=== PATIENT | female | born 1965 | race Caucasian/White ===

== ENCOUNTER 2017-07-02 09:26 | Inpatient (IN) | payer OTHER ==
[~2017-07-02] VITALS: Ht 175.3 cm; Wt 62.7 kg
[~2017-07-02 09:26] MED LIST: ALBU90OI INH; ALPR.25 PO; AMLO5 PO; BENZ100A PO; BUPR150T2 PO; CARV25 PO; CARV6.25 PO; Catapres0.1 MG PO; Coreg12.5 MG PO; Cyclobenzaprine5 MG PO; DICY20 PO; DIPATR PO; GUAI120S1 PO; HYDCHL25 PO; LOSARTAN POTAS100 MG PO; LOSHYD100 PO; MAGOXI400 PO; NITR100CA PO; OMEPRAZOLE MAGN20 MG PO; PROM25 PO; SERT50 PO; SPACE CHAMBER1 EACH MC; TRAM50 PO; VARE1 PO; Zithromax250 MG PO
[2017-07-02 10:07] LABS: PO2 Arterial 88.4 mmHg (80-100); pH Blood Arterial 7.45 (7.35-7.45)
[2017-07-02 10:25] LABS: BASOPHILS ABSOLUTE AUTO 0.01 K/mm3 (0.00-0.23); BASOPHILS PERCENT AUTO 0 % (0-2); EOSINOPHILS ABSOLUTE AUTO 0.02 K/mm3 (0.00-0.68); EOSINOPHILS PERCENT AUTO 0 % (0-6); Hematocrit 45.3 % (33.0-51.0); IMMATURE GRAN ABSOLUTE AUTO 0.04 K/mm3 (0.00-0.10); IMMATURE GRAN PERCENT AUTO 0 % (0-1); LYMPHOCYTES ABSOLUTE AUTO 1.67 K/mm3 (0.84-5.20); LYMPHOCYTES PERCENT AUTO 10 % (21-46); MONOCYTES ABSOLUTE AUTO 0.62 K/mm3 (0.16-1.47); MONOCYTES PERCENT AUTO 4 % (4-13); Mean Corpuscular HGB 34.2 pg (26.0-34.0); Mean Corpuscular HGB Conc 33.1 g/dL (31.5-36.5); Mean Corpuscular Volume 103 fL (80-100); Mean Platelet Volume 9.6 fL (9.1-12.4); NEUTROPHILS ABSOLUTE AUTO 13.99 K/mm3 (1.96-9.15); NEUTROPHILS PERCENT AUTO 86 % (41-73); Platelet Count 370 K/mm3 (150-400); RDW Coefficient Variation 12.6 % (11.7-14.2); RDW Standard Deviation 47.4 fL (35.1-46.3); Red Blood Cell Count 4.38 M/mm3 (3.80-5.20); White Blood Cell Count 16.35 K/mm3 (4.00-11.30)
[2017-07-02 10:32] LABS: Alanine Aminotransfer (ALT/SGP 49 U/L (12-78); Albumin, Blood 3.2 g/dL (3.4-5.0); Albumin/Globulin Ratio 0.7 (0.8-1.8); Alk Phos 70 U/L (50-136); Anion Gap 14 mmol/L (6-16); Aspartate Aminotrans (AST/SGOT 86 U/L (12-37); Bilirubin, Total 0.5 mg/dL (0.1-1.0); Blood Urea Nitrogen 30 mg/dL (8-24); Bun/Creatinine Ratio 49.3 (12.0-20.0); CO2, Blood 23 mmol/L (21-32); CPK Creatine Kinase 727 U/L (26-193); Calcium, Blood 9.4 mg/dL (8.5-10.1); Chloride, Blood 105 mmol/L (98-108); Creatinine, Blood 0.61 mg/dL (0.40-1.00); Ethanol (Alcohol), Blood, Med <3 mg/dL; Globulin, Blood 4.3 g/dL (2.2-4.0); Glomerular Filtration Rate >60 (60-); Glucose, Blood 134 mg/dL (70-99); Potassium, Blood 3.6 mmol/L (3.5-5.5); Salicylate 2.6 mg/dL (2.8-20.0); Sodium, Blood 142 mmol/L (136-145); Total Protein, Blood 7.5 g/dL (6.4-8.2); Troponin I 0.105 ng/mL (0.000-0.040)
[2017-07-02 10:41] LABS: Acetaminophen, Random <2.0 ug/mL (10.0-30.0)
[2017-07-02 10:49] LABS: Creatine Kinase MB Index 2.1 (0.0-4.0); International Normalized Ratio 0.97; Prothrombin Time Results 10.1 Sec (9.7-11.5)
[2017-07-02 11:01] LABS: Blood, Urine 3+ (Neg); Glucose Qualitative, Urine 1+ (Neg); Ketones, Urine 4+ (Neg); Leukocyte Esterase, Urine 1+ (Neg); Nitrite, Urine Neg (Neg); Protein, Urine 3+ (Neg); Specific Gravity, Urine 1.025 (1.003-1.022); Urobilinogen, Urine 1+ (Normal)
[2017-07-02 11:33] LABS: U Amphetamine Screen Not Detected; U Barbituate Screen Not Detected; U Benzodiazapine Screen Not Detected; U Buprenorphine Screen Not Detected; U Cannabinoids Screen DETECTED; U Cocaine Screen Not Detected; U Methadone Screen Not Detected; U Methamphetamine Screen Not Detected; U Opiates Screen Not Detected; U Oxycodone Screen Not Detected; U Phencyclidine Screen Not Detected; U Propoxyphene Screen Not Detected
[2017-07-02 12:39] LABS: Bilirubin, Urine 2+ (Neg)
[2017-07-02 12:40] LABS: Appearance, Urine Cloudy (Clear); Color, Urine Yellow (P-Yellow)
[2017-07-02 12:41] LABS: Bacteria Few /hpf; Red Blood Cells, Urine 0-2 /hpf (0-2); Squamous Epithelial Cells Mod /hpf (Few)
[2017-07-02] MEDS ORDERED: Coreg12.5 MG PO (17:44)
[2017-07-02] MEDS ORDERED: CLON.1 PO (17:45)
[2017-07-02] MEDS ORDERED: RANI150 PO (17:45)
[2017-07-03 05:05] LABS: PCO2 Arterial 29.1 mmHg (35-45); pH Blood Arterial 7.52 (7.35-7.45)
[2017-07-03 05:06] LABS: PO2 Arterial 83.7 mmHg (80-100)
[2017-07-03 05:15] LABS: Hematocrit 39.7 % (33.0-51.0); Hemoglobin 13.1 g/dL (11.5-16.0); Mean Corpuscular HGB 34.2 pg (26.0-34.0); Mean Corpuscular Volume 104 fL (80-100); Mean Platelet Volume 9.9 fL (9.1-12.4); Platelet Count 283 K/mm3 (150-400); RDW Coefficient Variation 12.8 % (11.7-14.2); RDW Standard Deviation 48.4 fL (35.1-46.3); Red Blood Cell Count 3.83 M/mm3 (3.80-5.20); White Blood Cell Count 10.92 K/mm3 (4.00-11.30)
[2017-07-03 05:45] LABS: Magnesium, Blood 1.7 mg/dL (1.6-2.4)
[2017-07-03 05:54] LABS: Alanine Aminotransfer (ALT/SGP 40 U/L (12-78); Albumin, Blood 2.8 g/dL (3.4-5.0); Albumin/Globulin Ratio 0.8 (0.8-1.8); Alk Phos 60 U/L (50-136); Anion Gap 9 mmol/L (6-16); Aspartate Aminotrans (AST/SGOT 62 U/L (12-37); Bilirubin, Total 0.5 mg/dL (0.1-1.0); Blood Urea Nitrogen 23 mg/dL (8-24); Bun/Creatinine Ratio 38.9 (12.0-20.0); CO2, Blood 25 mmol/L (21-32); CPK Creatine Kinase 429 U/L (26-193); Calcium, Blood 8.9 mg/dL (8.5-10.1); Chloride, Blood 110 mmol/L (98-108); Cholesterol 177 mg/dL (50-200); Creatinine, Blood 0.59 mg/dL (0.40-1.00); Globulin, Blood 3.7 g/dL (2.2-4.0); Glomerular Filtration Rate >60 (60-); Glucose, Blood 105 mg/dL (70-99); HDL Cholesterol 60 mg/dL (>39); LDL/HDL RATIO 1.4; Low Density Lipoprotein Chol 86 mg/dL (0-110); Phosphorus, Blood 2.3 mg/dL (2.5-4.9); Potassium, Blood 2.9 mmol/L (3.5-5.5); Sodium, Blood 144 mmol/L (136-145); Total Protein, Blood 6.5 g/dL (6.4-8.2); Triglycerides 157 mg/dL (30-160); Very Low Density Lipoprot Chol 31 mg/dL (6-32)
[2017-07-04 04:04] LABS: BASOPHILS ABSOLUTE AUTO 0.02 K/mm3 (0.00-0.23); BASOPHILS PERCENT AUTO 0 % (0-2); EOSINOPHILS ABSOLUTE AUTO 0.12 K/mm3 (0.00-0.68); EOSINOPHILS PERCENT AUTO 2 % (0-6); Hematocrit 35.1 % (33.0-51.0); Hemoglobin 11.7 g/dL (11.5-16.0); IMMATURE GRAN ABSOLUTE AUTO 0.02 K/mm3 (0.00-0.10); IMMATURE GRAN PERCENT AUTO 0 % (0-1); LYMPHOCYTES ABSOLUTE AUTO 1.34 K/mm3 (0.84-5.20); LYMPHOCYTES PERCENT AUTO 20 % (21-46); MONOCYTES ABSOLUTE AUTO 0.37 K/mm3 (0.16-1.47); MONOCYTES PERCENT AUTO 6 % (4-13); Mean Corpuscular HGB 33.7 pg (26.0-34.0); Mean Corpuscular HGB Conc 33.3 g/dL (31.5-36.5); Mean Platelet Volume 10.9 fL (9.1-12.4); NEUTROPHILS PERCENT AUTO 72 % (41-73); Platelet Count 189 K/mm3 (150-400); RDW Coefficient Variation 12.6 % (11.7-14.2); RDW Standard Deviation 46.1 fL (35.1-46.3); Red Blood Cell Count 3.47 M/mm3 (3.80-5.20); White Blood Cell Count 6.67 K/mm3 (4.00-11.30)
[2017-07-04 04:13] LABS: Mean Corpuscular Volume 101 fL (80-100)
[2017-07-04 04:27] LABS: Anion Gap 11 mmol/L (6-16); Blood Urea Nitrogen 14 mg/dL (8-24); Bun/Creatinine Ratio 28.3 (12.0-20.0); CO2, Blood 23 mmol/L (21-32); Calcium, Blood 8.2 mg/dL (8.5-10.1); Chloride, Blood 108 mmol/L (98-108); Creatinine, Blood 0.49 mg/dL (0.40-1.00); Glomerular Filtration Rate >60 (60-); Glucose, Blood 109 mg/dL (70-99); Magnesium, Blood 1.3 mg/dL (1.6-2.4); Phosphorus, Blood 2.9 mg/dL (2.5-4.9); Potassium, Blood 3.2 mmol/L (3.5-5.5); Sodium, Blood 142 mmol/L (136-145)
[2017-07-06 05:51] LABS: Hematocrit 33.4 % (33.0-51.0); Hemoglobin 11.1 g/dL (11.5-16.0)
[2017-07-06 06:24] LABS: Anion Gap 8 mmol/L (6-16); Blood Urea Nitrogen 16 mg/dL (8-24); Bun/Creatinine Ratio 29.7 (12.0-20.0); CO2, Blood 24 mmol/L (21-32); Calcium, Blood 8.6 mg/dL (8.5-10.1); Chloride, Blood 106 mmol/L (98-108); Creatinine, Blood 0.54 mg/dL (0.40-1.00); Glomerular Filtration Rate >60 (60-); Glucose, Blood 125 mg/dL (70-99); Magnesium, Blood 1.4 mg/dL (1.6-2.4); Phosphorus, Blood 2.5 mg/dL (2.5-4.9); Potassium, Blood 3.9 mmol/L (3.5-5.5); Sodium, Blood 138 mmol/L (136-145)
[2017-07-07] MEDS ORDERED: Juven1 EACH PO (13:00)
[2017-07-07] MEDS ORDERED: ASPI325 PO (13:00)
[2017-07-07] MEDS ORDERED: DOCU100 PO (13:00)
[2017-07-07] MEDS ORDERED: ATOR40TA PO (13:01)
[2018-05-25] MEDS ORDERED: ASPI81CH PO (12:11)
[2018-05-25] MEDS ORDERED: DISU500 PO (12:12)
[2018-05-25] MEDS ORDERED: Naltrexone HCl50 MG PO (12:13)
[2018-05-25] MEDS ORDERED: VENL75ER PO (12:14)
== END 2017-07-07 16:59 | DRG 64 ==
LOC: ER 09:26 → ICUE 11:18 → ICUW 11:18 → ICUE 12:55 → MEDS 07-04 20:29
PROVIDERS: Emergency Medicine; Family Medicine; Internal Medicine Critical Care Medicine
PROC: 5A1935Z Respiratory Ventilation, Less than 24 Consecutive Hours (ICD-10-PCS; principal; 2017-07-02)
PROC: 0BH17EZ Insertion of Endotracheal Airway into Trachea, Via Natural or Artificial Opening (ICD-10-PCS; 2017-07-02)
DX: I63.9 Cerebral infarction, unspecified (principal); G92 Toxic encephalopathy; J96.90 Respiratory failure, unspecified, unspecified whether with hypoxia or hypercapnia; L89.152 Pressure ulcer of sacral region, stage 2; G81.91 Hemiplegia, unspecified affecting right dominant side; F10.230 Alcohol dependence with withdrawal, uncomplicated; I10 Essential (primary) hypertension; E87.6 Hypokalemia; E83.39 Other disorders of phosphorus metabolism; R35.0 Frequency of micturition; Z87.891 Personal history of nicotine dependence; Z79.899 Other long term (current) drug therapy
CPT/HCPCS: 31500; 31720; 36415; 36600; 51702; 70450; 71045; 71275; 72125; 74175; 80048; 80053; 80061; 81001; 82550; 82553; 82803; 83605; 83690; 83735; 84100; 84443; 84484; 85014; 85018; 85025; 85027; 85610; 87040; 87086; 92526; 92610; 93005; 93010; 93306; 94002; 94003; 96361; 96365; 96375; 97110; 97112; 97163; 97167; 97530; 97535; 99291; 99292; C9113; G0480; G8978; G8979; G8987; G8988; G8996; G8997; G8998; J0330; J0360; J0696; J1644; J2060; J2250; J3370; J3411; J3475; J3480; J7030; J7042; J7050; J7060; Q9967

== ENCOUNTER 2017-07-10 13:51 | Emergency (ER) | payer OTHER ==
[~2017-07-10] VITALS: Ht 175.3 cm; Wt 65.8 kg
[~2017-07-10 13:51] MED LIST changes: +ASPI325 PO; +ATOR40TA PO; +CLON.1 PO; +DOCU100 PO; +Juven1 EACH PO; +RANI150 PO
[2017-07-10] MEDS ORDERED: Benadryl25 MG PO (14:58)
[2018-05-25] MEDS ORDERED: ASPI81CH PO (12:11)
[2018-05-25] MEDS ORDERED: DISU500 PO (12:12)
[2018-05-25] MEDS ORDERED: Naltrexone HCl50 MG PO (12:13)
[2018-05-25] MEDS ORDERED: VENL75ER PO (12:14)
== END 2017-07-10 16:00 | disposition home or self-care (01) ==
LOC: ER 13:51
DX: I63.9 Cerebral infarction, unspecified (principal); G81.91 Hemiplegia, unspecified affecting right dominant side; L89.159 Pressure ulcer of sacral region, unspecified stage; M62.461 Contracture of muscle, right lower leg; I10 Essential (primary) hypertension; F17.200 Nicotine dependence, unspecified, uncomplicated; Z79.899 Other long term (current) drug therapy; Z79.82 Long term (current) use of aspirin; Z90.89 Acquired absence of other organs; Z98.51 Tubal ligation status; W18.30XA Fall on same level, unspecified, initial encounter
CPT/HCPCS: 99283

== ENCOUNTER 2017-07-23 10:06 | Emergency (ER) | payer OTHER ==
[~2017-07-23] VITALS: Ht 175.3 cm; Wt 65.8 kg
[~2017-07-23 10:06] MED LIST changes: +Benadryl25 MG PO
[2017-07-23] MEDS ORDERED: Norco 5-325 Ta1 EACH PO (10:42)
[2017-07-23] MEDS ORDERED: TRAM50 PO ×2 (10:53→10:54)
[2018-05-25] MEDS ORDERED: ASPI81CH PO (12:11)
[2018-05-25] MEDS ORDERED: DISU500 PO (12:12)
[2018-05-25] MEDS ORDERED: Naltrexone HCl50 MG PO (12:13)
[2018-05-25] MEDS ORDERED: VENL75ER PO (12:14)
== END 2017-07-23 11:27 | disposition home or self-care (01) ==
LOC: ER 10:06
DX: L89.153 Pressure ulcer of sacral region, stage 3 (principal); I10 Essential (primary) hypertension; Z98.51 Tubal ligation status; Z79.899 Other long term (current) drug therapy; Z79.82 Long term (current) use of aspirin
CPT/HCPCS: 99283

== ENCOUNTER 2017-07-30 07:22 | Emergency (ER) | payer OTHER ==
[~2017-07-30] VITALS: Ht 162.6 cm; Wt 63.5 kg
[~2017-07-30 07:22] MED LIST changes: +Norco 5-325 Ta1 EACH PO
[2017-07-30] MEDS ORDERED: FOLI1 PO (07:39)
[2017-07-30] MEDS ORDERED: CYAN500 PO (07:39)
[2017-07-30] MEDS ORDERED: Prozac40 MG PO (07:39)
[2017-07-30] MEDS ORDERED: MIRALAX17 GM PO (07:40)
[2017-07-30] MEDS ORDERED: CHOL10002 (07:41)
[2017-07-30] MEDS ORDERED: BACL10 PO (07:41)
[2017-07-30] MEDS ORDERED: Potassium99 MG PO (07:41)
[2017-07-30] MEDS ORDERED: MELA3 PO (07:41)
[2017-07-30] MEDS ORDERED: Hair, Skin & N1 EACH PO (07:41)
[2017-07-30] MEDS ORDERED: BUTALB-ACETAMI1 EACH PO (07:42)
[2017-07-30] MEDS ORDERED: ACET325 PO (07:42)
[2017-07-30] MEDS ORDERED: GABA300 PO (07:42)
[2017-07-30] MEDS ORDERED: Milk Of Ma400 MG/5 M PO (07:43)
[2017-07-30] MEDS ORDERED: BISA10S PR (07:43)
[2018-05-25] MEDS ORDERED: ASPI81CH PO (12:11)
[2018-05-25] MEDS ORDERED: DISU500 PO (12:12)
[2018-05-25] MEDS ORDERED: Naltrexone HCl50 MG PO (12:13)
[2018-05-25] MEDS ORDERED: VENL75ER PO (12:14)
== END 2017-07-30 09:17 | disposition home or self-care (01) ==
LOC: ER 07:22
DX: M79.601 Pain in right arm (principal); I10 Essential (primary) hypertension; E78.5 Hyperlipidemia, unspecified; Z79.899 Other long term (current) drug therapy; Z79.82 Long term (current) use of aspirin; Z86.73 Personal history of transient ischemic attack (TIA), and cerebral infarction without residual deficits; Z90.89 Acquired absence of other organs; Z87.891 Personal history of nicotine dependence
CPT/HCPCS: 99283

== ENCOUNTER 2018-02-15 07:06 | Observation (INO) | payer OTHER ==
[~2018-02-15] VITALS: Ht 175.3 cm; Wt 76.9 kg
[~2018-02-15 07:06] MED LIST changes: +ACET325 PO; +BACL10 PO; +BISA10S PR; +BUTALB-ACETAMI1 EACH PO; +CHOL10002; +CYAN500 PO; +FOLI1 PO; +GABA300 PO; +Hair, Skin & N1 EACH PO; +MELA3 PO; +MIRALAX17 GM PO; +Milk Of Ma400 MG/5 M PO; +Potassium99 MG PO; +Prozac40 MG PO
[2018-02-15] MEDS ORDERED: DIPH50 PO (07:13)
[2018-02-15] MEDS ORDERED: FLUC150A PO (07:16)
[2018-02-15] MEDS ORDERED: GABA300 PO (07:19)
[2018-02-15] MEDS ORDERED: Ibuprofen Ib200 MG PO (07:21)
[2018-02-15] MEDS ORDERED: HYDR1TAB94 PO (07:24)
[2018-02-15 07:59] LABS: BASOPHILS ABSOLUTE AUTO 0.03 K/mm3 (0.00-0.23); BASOPHILS PERCENT AUTO 1 % (0-2); EOSINOPHILS ABSOLUTE AUTO 0.25 K/mm3 (0.00-0.68); EOSINOPHILS PERCENT AUTO 5 % (0-6); Hematocrit 33.8 % (33.0-51.0); Hemoglobin 11.2 g/dL (11.5-16.0); IMMATURE GRAN ABSOLUTE AUTO 0.01 K/mm3 (0.00-0.10); IMMATURE GRAN PERCENT AUTO 0 % (0-1); LYMPHOCYTES ABSOLUTE AUTO 1.58 K/mm3 (0.84-5.20); LYMPHOCYTES PERCENT AUTO 30 % (21-46); MONOCYTES ABSOLUTE AUTO 0.23 K/mm3 (0.16-1.47); MONOCYTES PERCENT AUTO 4 % (4-13); Mean Corpuscular HGB 31.5 pg (26.0-34.0); Mean Corpuscular HGB Conc 33.1 g/dL (31.5-36.5); Mean Corpuscular Volume 95 fL (80-100); NEUTROPHILS ABSOLUTE AUTO 3.21 K/mm3 (1.96-9.15); NEUTROPHILS PERCENT AUTO 60 % (41-73); Platelet Count 240 K/mm3 (150-400); RDW Coefficient Variation 11.5 % (11.7-14.2); Red Blood Cell Count 3.56 M/mm3 (3.80-5.20); White Blood Cell Count 5.31 K/mm3 (4.00-11.30)
[2018-02-15 08:16] LABS: International Normalized Ratio 1.02; Prothrombin Time Results 10.5 Sec (9.7-11.5)
[2018-02-15 08:24] LABS: Alanine Aminotransfer (ALT/SGP 19 U/L (12-78); Albumin, Blood 3.6 g/dL (3.4-5.0); Albumin/Globulin Ratio 1.1 (0.8-1.8); Alk Phos 109 U/L (50-136); Anion Gap 6 mmol/L (6-16); Aspartate Aminotrans (AST/SGOT 15 U/L (12-37); Bilirubin, Total 0.3 mg/dL (0.1-1.0); Blood Urea Nitrogen 23 mg/dL (8-24); Bun/Creatinine Ratio 26.3 (12.0-20.0); CO2, Blood 25 mmol/L (21-32); Chloride, Blood 111 mmol/L (98-108); Creatinine, Blood 0.87 mg/dL (0.40-1.00); Globulin, Blood 3.3 g/dL (2.2-4.0); Glomerular Filtration Rate >60 (60-); Glucose, Blood 96 mg/dL (70-99); Potassium, Blood 4.6 mmol/L (3.5-5.5); Sodium, Blood 142 mmol/L (136-145); Total Protein, Blood 6.9 g/dL (6.4-8.2)
[2018-02-15] MEDS ORDERED: ONDA4 PO (13:31)
[2018-02-16] MEDS ORDERED: CLOP75 PO (13:53)
[2018-02-16] MEDS ORDERED: AMLO5 PO (13:53)
== END 2018-02-16 11:58 | disposition home or self-care (01) ==
LOC: ER 07:06 → MEDS 07:07 → ENPENDDIS 02-16 10:17 → MEDS 02-16 11:58
PROVIDERS: Physician Assistant
DX: G45.9 Transient cerebral ischemic attack, unspecified (principal); I10 Essential (primary) hypertension; G31.84 Mild cognitive impairment of uncertain or unknown etiology; R26.9 Unspecified abnormalities of gait and mobility; Z86.73 Personal history of transient ischemic attack (TIA), and cerebral infarction without residual deficits; Z98.890 Other specified postprocedural states; Z98.51 Tubal ligation status; Z87.891 Personal history of nicotine dependence; Z79.899 Other long term (current) drug therapy
CPT/HCPCS: 36415; 70450; 80053; 84484; 85025; 85610; 93005; 93010; 93880; 96360; 96361; 96372; 99285-25; G0378; J1650; J7030

== ENCOUNTER 2018-06-17 17:20 | Inpatient (IN) | payer OTHER ==
[~2018-06-17] VITALS: Ht 175.3 cm; Wt 71.0 kg
[~2018-06-17 17:20] MED LIST changes: +ASPI81CH PO; +CLOP75 PO; +DIPH50 PO; +DISU500 PO; +FLUC150A PO; +HYDR1TAB94 PO; +Ibuprofen Ib200 MG PO; +Naltrexone HCl50 MG PO; +ONDA4 PO; +VENL75ER PO
[2018-06-17 18:08] LABS: BASOPHILS ABSOLUTE AUTO 0.04 K/mm3 (0.00-0.23); BASOPHILS PERCENT AUTO 0 % (0-2); EOSINOPHILS PERCENT AUTO 2 % (0-6); Hemoglobin 11.8 g/dL (11.5-16.0); IMMATURE GRAN ABSOLUTE AUTO 0.02 K/mm3 (0.00-0.10); IMMATURE GRAN PERCENT AUTO 0 % (0-1); LYMPHOCYTES ABSOLUTE AUTO 2.14 K/mm3 (0.84-5.20); LYMPHOCYTES PERCENT AUTO 23 % (21-46); MONOCYTES ABSOLUTE AUTO 0.42 K/mm3 (0.16-1.47); MONOCYTES PERCENT AUTO 5 % (4-13); Mean Corpuscular HGB 31.6 pg (26.0-34.0); Mean Corpuscular HGB Conc 32.8 g/dL (31.5-36.5); Mean Corpuscular Volume 97 fL (80-100); Mean Platelet Volume 10.2 fL (9.1-12.4); NEUTROPHILS ABSOLUTE AUTO 6.48 K/mm3 (1.96-9.15); NEUTROPHILS PERCENT AUTO 70 % (41-73); Platelet Count 299 K/mm3 (150-400); RDW Coefficient Variation 12.3 % (11.7-14.2); RDW Standard Deviation 43.3 fL (35.1-46.3); Red Blood Cell Count 3.73 M/mm3 (3.80-5.20)
[2018-06-17 18:29] LABS: Alanine Aminotransfer (ALT/SGP 22 U/L (12-78); Albumin, Blood 3.3 g/dL (3.4-5.0); Albumin/Globulin Ratio 0.9 (0.8-1.8); Alk Phos 107 U/L (50-136); Anion Gap 9 mmol/L (6-16); Aspartate Aminotrans (AST/SGOT 19 U/L (12-37); Bilirubin, Total 0.2 mg/dL (0.1-1.0); Blood Urea Nitrogen 20 mg/dL (8-24); CO2, Blood 20 mmol/L (21-32); Calcium, Blood 8.9 mg/dL (8.5-10.1); Chloride, Blood 111 mmol/L (98-108); Creatinine, Blood 0.77 mg/dL (0.40-1.00); Globulin, Blood 3.7 g/dL (2.2-4.0); Glomerular Filtration Rate >60 (60-); Glucose, Blood 112 mg/dL (70-99); Sodium, Blood 140 mmol/L (136-145)
[2018-06-17 18:37] LABS: Troponin I 0.995 ng/mL (0.000-0.040)
[2018-06-18] MEDS ORDERED: PANT40 PO (00:07)
[2018-06-18] MEDS ORDERED: TRAZ50 PO (00:08)
[2018-06-18] MEDS ORDERED: DULO30 PO (00:09)
[2018-06-18] MEDS ORDERED: LEVE500 PO (00:09)
[2018-06-18 01:09] LABS: Source, Urine Clean Catch
[2018-06-18 01:14] LABS: Appearance, Urine Clear (Clear); Bilirubin, Urine Neg (Neg); Blood, Urine Neg (Neg); Color, Urine Yellow (P-Yellow); Glucose Qualitative, Urine Neg (Neg); Ketones, Urine 1+ (Neg); Leukocyte Esterase, Urine 3+ (Neg); Nitrite, Urine Neg (Neg); Protein, Urine 1+ (Neg); Urobilinogen, Urine NORM (Normal)
[2018-06-18 01:38] LABS: BASOPHILS ABSOLUTE AUTO 0.04 K/mm3 (0.00-0.23); BASOPHILS PERCENT AUTO 1 % (0-2); EOSINOPHILS ABSOLUTE AUTO 0.24 K/mm3 (0.00-0.68); EOSINOPHILS PERCENT AUTO 3 % (0-6); Hemoglobin 10.9 g/dL (11.5-16.0); IMMATURE GRAN ABSOLUTE AUTO 0.02 K/mm3 (0.00-0.10); IMMATURE GRAN PERCENT AUTO 0 % (0-1); LYMPHOCYTES ABSOLUTE AUTO 3.21 K/mm3 (0.84-5.20); LYMPHOCYTES PERCENT AUTO 37 % (21-46); MONOCYTES PERCENT AUTO 4 % (4-13); Mean Corpuscular HGB 30.9 pg (26.0-34.0); Mean Corpuscular HGB Conc 32.1 g/dL (31.5-36.5); Mean Corpuscular Volume 96 fL (80-100); Mean Platelet Volume 10.4 fL (9.1-12.4); NEUTROPHILS ABSOLUTE AUTO 4.79 K/mm3 (1.96-9.15); NEUTROPHILS PERCENT AUTO 56 % (41-73); Platelet Count 263 K/mm3 (150-400); RDW Coefficient Variation 12.2 % (11.7-14.2); RDW Standard Deviation 42.4 fL (35.1-46.3); Red Blood Cell Count 3.53 M/mm3 (3.80-5.20)
[2018-06-18 01:52] LABS: Bacteria Many /hpf; Squamous Epithelial Cells Many /hpf (Few)
[2018-06-18 01:55] LABS: Anion Gap 9 mmol/L (6-16); Blood Urea Nitrogen 16 mg/dL (8-24); Bun/Creatinine Ratio 23.6 (12.0-20.0); CO2, Blood 21 mmol/L (21-32); Calcium, Blood 7.7 mg/dL (8.5-10.1); Chloride, Blood 113 mmol/L (98-108); Creatinine, Blood 0.68 mg/dL (0.40-1.00); Glomerular Filtration Rate >60 (60-); Glucose, Blood 238 mg/dL (70-99); Potassium, Blood 3.3 mmol/L (3.5-5.5); Sodium, Blood 143 mmol/L (136-145)
[2018-06-18] MEDS ORDERED: DOCU100 PO (12:34)
[2018-06-18] MEDS ORDERED: Preparation H26 GM TOP (12:36)
[2018-06-18] MEDS ORDERED: Voltaren100 GM TOP (12:36)
[2018-06-18] MEDS ORDERED: HEMORRHOIDAL H1 EACH TOP (12:37)
== END 2018-06-21 15:40 | DRG 281 ==
LOC: DELPENDDIS → ER 17:20 → PCU 19:41 → ERHOLD 19:41 → MEDS 23:31 → PCU 23:44 → MEDS 06-19 18:30 → ENPENDDIS 06-20 11:22 → MEDS 06-21 15:40
PROVIDERS: Emergency Medicine; Family Medicine
DX: I21.4 Non-ST elevation (NSTEMI) myocardial infarction (principal); I69.351 Hemiplegia and hemiparesis following cerebral infarction affecting right dominant side; I10 Essential (primary) hypertension; E87.6 Hypokalemia; G40.909 Epilepsy, unspecified, not intractable, without status epilepticus; F32.9 Major depressive disorder, single episode, unspecified; G62.9 Polyneuropathy, unspecified; Z86.73 Personal history of transient ischemic attack (TIA), and cerebral infarction without residual deficits; Z87.891 Personal history of nicotine dependence; Z79.02 Long term (current) use of antithrombotics/antiplatelets; Z79.82 Long term (current) use of aspirin; Z79.899 Other long term (current) drug therapy
CPT/HCPCS: 36415; 71046; 78451; 80048; 80053; 81001; 83690; 84484; 85025; 85730; 93005; 93010; 93017; 93308; 93321; 96361; 96365; 96366; 97161; 99285-25; A9500; G8978; G8979; G8980; J1644; J2785; J7030; J7040

== ENCOUNTER 2018-06-26 12:33 | Emergency (ER) | payer OTHER ==
[~2018-06-26] VITALS: Ht 175.3 cm; Wt 72.6 kg
[~2018-06-26 12:33] MED LIST changes: +DULO30 PO; +HEMORRHOIDAL H1 EACH TOP; +LEVE500 PO; +PANT40 PO; +Preparation H26 GM TOP; +TRAZ50 PO; +Voltaren100 GM TOP
== END 2018-06-26 14:25 | disposition home or self-care (01) ==
LOC: ER 12:33
DX: S16.1XXA Strain of muscle, fascia and tendon at neck level, initial encounter (principal); S70.02XA Contusion of left hip, initial encounter; I10 Essential (primary) hypertension; Z79.82 Long term (current) use of aspirin; Z79.899 Other long term (current) drug therapy; W18.30XA Fall on same level, unspecified, initial encounter; Z86.73 Personal history of transient ischemic attack (TIA), and cerebral infarction without residual deficits
CPT/HCPCS: 72040; 73502; 99283-25

== ENCOUNTER 2018-07-01 06:01 | Emergency (ER) | payer OTHER ==
[~2018-07-01] VITALS: Ht 175.3 cm; Wt 69.0 kg
== END 2018-07-01 10:22 | disposition home or self-care (01) ==
LOC: ER 06:01
DX: S00.83XA Contusion of other part of head, initial encounter (principal); S70.12XA Contusion of left thigh, initial encounter; S80.01XA Contusion of right knee, initial encounter; W22.8XXA Striking against or struck by other objects, initial encounter; Z79.899 Other long term (current) drug therapy; Z79.82 Long term (current) use of aspirin; I10 Essential (primary) hypertension; Z87.891 Personal history of nicotine dependence
CPT/HCPCS: 99284

== ENCOUNTER 2018-07-05 07:53 | Emergency (ER) | payer OTHER ==
[~2018-07-05] VITALS: Ht 175.3 cm; Wt 68.0 kg
== END 2018-07-05 10:22 | disposition home or self-care (01) ==
LOC: ER 07:53
DX: S80.211A Abrasion, right knee, initial encounter (principal); W06.XXXA Fall from bed, initial encounter; Z79.899 Other long term (current) drug therapy; Z79.82 Long term (current) use of aspirin; I10 Essential (primary) hypertension; Z87.891 Personal history of nicotine dependence
CPT/HCPCS: 99283

== ENCOUNTER 2018-07-08 10:11 | Emergency (ER) | payer OTHER ==
[~2018-07-08] VITALS: Ht 175.3 cm; Wt 70.3 kg
== END 2018-07-08 11:52 | disposition home or self-care (01) ==
LOC: ER 10:11
DX: S30.1XXA Contusion of abdominal wall, initial encounter (principal); S70.01XA Contusion of right hip, initial encounter; S00.83XA Contusion of other part of head, initial encounter; W06.XXXA Fall from bed, initial encounter; R29.6 Repeated falls; Z79.899 Other long term (current) drug therapy; Z79.82 Long term (current) use of aspirin; Z86.73 Personal history of transient ischemic attack (TIA), and cerebral infarction without residual deficits; I10 Essential (primary) hypertension; Z87.891 Personal history of nicotine dependence
CPT/HCPCS: 99283

== ENCOUNTER → 2018-07-18 | Outpatient (CLI) | payer OTHER ==
[2018-07-18 12:52] LABS: Appearance, Urine Turbid (Clear); Bilirubin, Urine Neg (Neg); Blood, Urine 1+ (Neg); Color, Urine Yellow (P-Yellow); Glucose Qualitative, Urine Neg (Neg); Ketones, Urine Neg (Neg); Leukocyte Esterase, Urine 1+ (Neg); Nitrite, Urine Neg (Neg); Protein, Urine 1+ (Neg); Specific Gravity, Urine 1.025 (1.003-1.022); Urobilinogen, Urine NORM (Normal)
[2018-07-18 13:03] LABS: Red Blood Cells, Urine Not Seen /hpf (0-2); White Blood Cells, Urine Not Seen /hpf (0-5)
[2018-07-18 13:04] LABS: Amorphous Heavy ({null, 0-Heavy}); Bacteria Few /hpf; Squamous Epithelial Cells Few /hpf (Few)
== END | disposition home or self-care (01) ==
LOC: LAB SHORT 12:37 → LAB 12:37
PROVIDERS: Family Medicine
DX: R82.998 Other abnormal findings in urine (principal)
CPT/HCPCS: 81001; 87086